=== PATIENT | female | born 1955 | race Caucasian/White ===

== ENCOUNTER 2021-06-22 10:35 | Day surgery (SDC) | payer MEDICARE, OTHER ==
--- NOTE | 2021-06-22 07:47 | HP ---
DATE OF SURGERY: 06/22/2021 HISTORY OF PRESENT ILLNESS: The patient is a 66-year-old last colonoscopy five or six years ago had some polyps. No bloody stools. No change in bowel movements. No pain. Family history negative for colon cancer, negative for ulcerative colitis. She has history of laparoscopic hernia repair by Dr. De La Paz in the past. Question whether she had poor insufflation or recurrence. Offered checking a CT scan of pelvis for evaluation and really wanted to hold off. She is due for follow up screening colonoscopy given her history of polyps. PAST MEDICAL HISTORY: Hypothyroidism. PAST SURGICAL HISTORY: Hernia repair by Dr. De La Paz in the past. Meniscus repair. Appendectomy in the past. MEDICATIONS: Levothyroxine. ALLERGIES: TRAMADOL. FAMILY HISTORY: Negative for colon cancer, negative for ulcerative colitis. SOCIAL HISTORY: Quarter to half pack per day smoker, denies alcohol abuse. REVIEW OF SYSTEMS: Fourteen systems reviewed. No chest pain or palpitations. Other systems negative or noncontributory as above and per preadmission questionnaire. PHYSICAL EXAMINATION: GENERAL: No acute distress. HEENT: Sclerae nonicteric. NECK: No JVD. CHEST: Clear to auscultation. CVS: Regular rate and rhythm. ABDOMEN: Soft. No peritoneal signs. EXTREMITIES: No significant edema. NEURO: Alert, oriented, moving extremities symmetrically. RECTAL: Deferred timed to endoscopy exam. PSYCH: Appropriate mood and affect. IMPRESSION: History of polyps, need follow up screening colonoscopy. I feel the patient is a candidate. Risks and benefits explained in detail including but not limited to bleeding or infection, risk of bowel injury or perforation possibly requiring open procedure, risk of missed or nondiagnosis, risk of bowel prep or sedation, not limited. Consent obtained. Will proceed with outpatient follow up screening colonoscopy.
[2021-06-22] MEDS ORDERED: Lactated Ringers 1,000 ML IV ONE (10:57)
[2021-06-22] MEDS ORDERED: Lactated Ringers 1,000 ML IV SCH (11:00)
[2021-06-22 11:17] VITALS: O2SAT 96
[2021-06-22] MEDS ORDERED: DIPRIVAN 200 MG/20 ML IV ONE ×2 (11:59→12:19)
[2021-06-22] MEDS ORDERED: Versed 2 MG/2 ML Injection ONE (11:59)
[2021-06-22 13:16] VITALS: BP 117/70; PULSE 73
--- NOTE | 2021-06-22 15:33 | OP ---
SURGERY DATE/TIME: 06/22/2021 1201 PREOPERATIVE DIAGNOSIS: History of polyps, need follow up screening colonoscopy. POSTOPERATIVE DIAGNOSES: 1) Small early polyp versus hyperplastic lesion transverse colon, sigmoid colon. 2) Diverticulosis. 3) Very tortuous colon. 4) Fair bowel prep. 5) ASA Class II. 6) Withdrawal time on the colonoscopy approximately 8 minutes. PROCEDURES: 1) Colonoscopy to cecum with hot biopsy polypectomy of small early sigmoid colon polyp versus hyperplastic lesion x4. 2) Hot biopsy polypectomy small early polyp versus hyperplastic lesion transverse colon x1. SURGEON: Dr. Derek Weems. ANESTHESIA: MAC. ESTIMATED BLOOD LOSS: Minimal. INDICATIONS: As noted above. Risks and benefits explained in detail but not limited to and consent obtained. DESCRIPTION OF PROCEDURE AND FINDINGS: The patient is taken to the endoscopy room. MAC anesthesia induced. After official time out and no disagreement with planned procedure, digital rectal exam did not reveal any rectal masses. Video colonoscope inserted and passed up through the slightly tortuous sigmoid, descending, transverse and ascending colon around to the cecum. She had a very tortuous colon. It took quite some time to get to the cecum but the appendiceal orifice and valve were well visualized and photo documented. Required positioning on her back and two different staff members compression on the abdomen palpation right lower quadrant visualization of the valve and appendiceal orifice area confirmed location. Prep overall was fair with a little liquidy semisolid stool most prominent in the right colon this is suctioned and irrigated as clear as possible. The scope is carefully withdrawn over the next 8 minutes. There were no signs of any large polyps, masses or obstructing lesion. There was one small early polyp versus hyperplastic lesion in the transverse colon removed with hot biopsy forceps with brief bursts of cautery. There were four small, early polyps versus hyperplastic lesions in the sigmoid colon removed with hot biopsy polypectomy and brief bursts of cautery. Good hemostasis noted. She did have some moderate diverticulosis in the descending, sigmoid colon area. There were no signs of any large polyps, masses or obstructing lesions. The scope is withdrawn. The patient tolerated the procedure well. Findings discussed with the out in the waiting area. I will see her back in the office next week.
== END 2021-06-22 13:30 | disposition home or self-care (01) ==
LOC: SDC 10:35
PROVIDERS: ATTEND Surgery
DX: Z12.11 Encounter for screening for malignant neoplasm of colon (principal); Z09 Encounter for follow-up examination after completed treatment for conditions other than malignant neoplasm; K57.90 Diverticulosis of intestine, part unspecified, without perforation or abscess without bleeding; K63.5 Polyp of colon; Z86.010 Personal history of colon polyps
CPT/HCPCS: J2250; J2704

== ENCOUNTER 2022-02-01 10:54 | Day surgery (SDC) | payer MEDICARE, OTHER ==
--- NOTE | 2022-02-01 09:26 | HP ---
DATE OF SURGERY: 02/01/2022 HISTORY OF PRESENT ILLNESS: The patient is a 66-year-old has some swelling in her left arm in the past, question of adenopathy versus lipoma or other etiology. PAST MEDICAL HISTORY: Gastroesophageal reflux disease. Hypothyroidism. Hernia. Lymph node problem. PAST SURGICAL HISTORY: Appendectomy. Colonoscopy. Left meniscus repair. Hernia repair in the past in the past. MEDICATIONS: Ibuprofen, Levothyroxine, loratadine, omeprazole, vitamin D3. ALLERGIES: TRAMADOL (LIGHTHEADEDNESS). FAMILY HISTORY: Negative in regards to this problem. SOCIAL HISTORY: History of smoking in the past. REVIEW OF SYSTEMS: Fourteen systems reviewed, negative or noncontributory as above and per preadmission questionnaire. PHYSICAL EXAMINATION: GENERAL: No acute distress. HEENT: Sclerae nonicteric. NECK: No JVD. CHEST: Equal excursion, nonlabored breathing. CVS: Regular rate and rhythm. ABDOMEN: Soft, nontender. EXTREMITIES: She had a little bit of a raised area medial aspect of the antecubital area proximally. Radiologist felt it was adenopathy on recent ultrasound. NEURO: Alert, oriented, moving extremities symmetrically. RECTAL: Deferred timed to endoscopy exam. PSYCH: Appropriate mood and affect. IMPRESSION: Ultrasound was done which showed a 1 cm lymph node medial aspect of the arm. Given the persistence the patient is concerned and desires biopsy. The radiologist did not anything further distal to warrant any other biopsy sites. Discussed options with patient. She prefers to go ahead and have a biopsy to determine path evaluation given the persistent swelling. General risk of bleeding or infection, risk of hematoma, aches, pains, risk of nerve irritation, bruising, scar formation, risk of burning or numbness possibly exterminator or chronic in nature, risk of lymphedema, general risk of anesthesia, deep venous thrombosis, pulmonary embolism, pneumonia but not limited to. Scar formation. Consent obtained. Will proceed with excisional biopsy of left arm nodule or node as an outpatient.
[~2022-02-01 10:54] MED LIST: Sensorcaine 0.25% 10 ML ONE
[2022-02-01] MEDS ORDERED: Lactated Ringers 1,000 ML IV ONE ×2 (11:18→14:51)
[2022-02-01] MEDS ORDERED: Lactated Ringers 1,000 ML IV SCH (11:30)
[2022-02-01] MEDS ORDERED: CEFAZOLIN 2 GM-D5W BAG** 2 GM/50 ML ML IV ONE (13:42)
[2022-02-01] MEDS ORDERED: Versed 2 MG/2 ML Injection ONE (13:45)
[2022-02-01] MEDS ORDERED: Zofran 4 MG/2 ML VIAL ONE ×2 (13:45→13:50)
[2022-02-01] MEDS ORDERED: SUBLIMAZE 100 MCG/2 ML ONE (13:45)
[2022-02-01] MEDS ORDERED: Decadron 4 MG INJ ONE (13:45)
[2022-02-01] MEDS ORDERED: DIPRIVAN 200 MG/20 ML IV ONE (13:45)
[2022-02-01] MEDS ORDERED: Xylocaine-Mpf 2% 5 Ml Vial ONE (13:45)
[2022-02-01] MEDS ORDERED: CEFAZOLIN 2 GM-D5W BAG** 2 GM/50 ML ML IV SCH (14:00)
[2022-02-01] MEDS ORDERED: PHENYLEPHRINE HCL ONE (14:11)
[2022-02-01] MEDS ORDERED: Ephedrine Sulfate 50 MG/ML ONE (15:16)
[2022-02-01 16:14] VITALS: BP 138/75; PULSE 86; O2SAT 97
--- NOTE | 2022-02-02 09:00 | OP ---
SURGERY DATE/TIME: 02/01/2022 1401 PREOPERATIVE DIAGNOSIS: Enlarging nodule or node left upper extremity antecubital area. POSTOPERATIVE DIAGNOSIS: Lipomatous density. No chronic visible significantly enlarged adenopathy in the raised area she had in question this was confirmed in the preoperative area. PROCEDURE: Excisional biopsy approximately 1.2 cm lipomatous density left arm antecubital area. SURGEON: Dr. Derek Weems. ANESTHESIA: General. ESTIMATED BLOOD LOSS: Minimal. INDICATIONS: As noted above. The site was confirmed and marked with the patient in the preoperative holding area. DESCRIPTION OF PROCEDURE AND FINDINGS: Slightly raised area top edge of antecubital area medially this area in question was quite soft. There is question whether some fatty density here. Questionable node or nodule reported on the ultrasound in the past. Dissection carried over this. She had a prior scar from an injury years ago. Dissection carried directly overlying this area dissection carried down to subcutaneous tissue. There was a little bit denser lipomatous density overlying area carefully dissected out and passed off. It measured about 1.2 cm in size, passed off for pathology. Otherwise the main area of the raised area where a vein was lying directly anterior to the artery. Careful dissection around this. There did not appear to be any significant large adenopathy in the area in question. Whether this had been marked by the patient. Remaining was musculature of her artery and large vein, nerves medial were carefully protected and avoided. Whether there is a little bit more of a medial fatty material in the nerve bundle but there was no specific nodule that warranted an excision. Palpation of bony structures and musculature, there did not appear to be any significant adenopathy to warrant removal in this area in question. The wound is irrigated out. Good hemostasis noted. Again, carefully protected the vein which was lying directly anterior to the artery and carefully protected the nerve structures. The wound was then closed with interrupted 3-0 Vicryl. Subcu and skin closed with 4-0 Vicryl in subcuticular fashion. 0.25% Marcaine local injected. Steri-Strips and sterile dressing applied. The patient tolerated the procedure well. There were no immediate complications. Findings discussed with the family out in the waiting area. If she continues to have some arm aches and pains, might need to see neurology to do EMG for further evaluation.
== END 2022-02-01 16:25 | disposition home or self-care (01) ==
LOC: SDC 10:54
PROVIDERS: ATTEND Surgery
DX: D17.22 Benign lipomatous neoplasm of skin and subcutaneous tissue of left arm (principal); R22.32 Localized swelling, mass and lump, left upper limb
CPT/HCPCS: J0690; J1100; J2250; J2370; J2405; J2704; J3010

== ENCOUNTER 2022-11-08 08:40 | Day surgery (SDC) | payer MEDICARE, OTHER ==
--- NOTE | 2022-11-08 08:30 | HP ---
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 She has had a couple attacks of epigastric pain associated with nausea and vomiting. HIDA normal 16%. Ultrasound showed some sludge. PAST MEDICAL HISTORY: Gastroesophageal reflux disease, hernia, anxiety. PAST SURGICAL HISTORY: She had lipoma removed from her left arm in the past. She had hernia repair in the past. She had lymph node repair in the past. MEDICATIONS: Levothyroxine (hypothyroidism). ALLERGIES: TRAMADOL. FAMILY HISTORY: Negative. SOCIAL HISTORY: Smoker. No alcohol abuse. REVIEW OF SYSTEMS: Fourteen systems reviewed. No chest pain or palpitations. Other systems negative or noncontributory as above and per preadmission questionnaire. PHYSICAL EXAMINATION: Height 5'4". BMI 20.6. GENERAL: No acute distress. HEENT: Sclerae nonicteric. EOMI. Oral mucous membranes moist. NECK: No JVD. CHEST: Equal excursion, nonlabored breathing. Breath sounds equal. CVS: Regular rate and rhythm. ABDOMEN: Soft. EXTREMITIES: No significant edema. NEURO: Alert, oriented, moving extremities symmetrically. PSYCH: Appropriate mood and affect. SKIN: Dry. IMPRESSION: Acute exacerbation chronic cholecystitis, symptomatic biliary dyskinesia and sludge. I recommend cholecystectomy. He was shown the risk sheet explained the procedure in detail including but not limited to bleeding or infection, risk of trocar injury or hernia, risk of bile leak, bile duct injury, retained stone or sludge possibly requiring further procedure either open or ERCP, general risk of anesthesia, deep venous thrombosis, pulmonary embolism, pneumonia, perioperative risk of aches, pains, bloating, constipation and/or loose stools possibly even chronic in nature. She understands and agrees to the planned procedure, will proceed with laparoscopic cholecystectomy with possible open as an outpatient.
[2022-11-08] MEDS ORDERED: Lactated Ringers 1,000 ML IV SCH (09:30)
[2022-11-08] MEDS ORDERED: MEFOXIN 2 GM PREMIX** 2 GM/50 ML ML IV SCH (10:00)
[2022-11-08] MEDS ORDERED: Zemuron 100 MG/10 ML ONE (10:46)
[2022-11-08] MEDS ORDERED: Decadron 4 MG INJ ONE (10:46)
[2022-11-08] MEDS ORDERED: Xylocaine-Mpf 2% 5 Ml Vial ONE (10:46)
[2022-11-08] MEDS ORDERED: SUBLIMAZE 100 MCG/2 ML ONE (10:46)
[2022-11-08] MEDS ORDERED: Versed 2 MG/2 ML Injection ONE (10:46)
[2022-11-08] MEDS ORDERED: Zofran 4 MG/2 ML VIAL ONE (10:46)
[2022-11-08] MEDS ORDERED: DIPRIVAN 200 MG/20 ML IV ONE (10:47)
[2022-11-08] MEDS ORDERED: OFIRMEV 100 ML IV ONE (10:52)
[2022-11-08] MEDS ORDERED: DEXMEDETOMIDINE 80 MCG/20ML-NS IV ONE (11:12)
[2022-11-08] MEDS ORDERED: ROBINUL ONE (11:26)
[2022-11-08] MEDS ORDERED: BRIDION 200MG/2ML IV ONE (11:28)
[2022-11-08] MEDS ORDERED: Lactated Ringers 1,000 ML IV ONE (11:38)
[2022-11-08] MEDS ORDERED: Hydromorphone 1 mg/ml Injection ONE (12:06)
[2022-11-08 12:55] VITALS: RESP 18
[2022-11-08 12:59] VITALS: TEMP 96.3
[2022-11-08] MEDS ORDERED: NORCO 5/325 MG PO PRN (12:59)
[2022-11-08 13:12] VITALS: BP 140/60; PULSE 66; O2SAT 98
--- NOTE | 2022-11-09 08:10 | OP ---
SURGERY DATE/TIME: 11/08/2022 1057 PREOPERATIVE DIAGNOSIS: Acute exacerbation of chronic cholecystitis, symptomatic biliary dyskinesia. POSTOPERATIVE DIAGNOSIS: Acute exacerbation of chronic cholecystitis, symptomatic biliary dyskinesia. PROCEDURE: Laparoscopic cholecystectomy. SURGEON: Dr. Matthew Weems. SCRUB WHEEL OPERATOR: Ramiro Piper, Medical Student III. ANESTHESIA: General. ESTIMATED BLOOD LOSS: Minimal. INDICATIONS: As noted above. Risks and benefits explained in detail but not limited to and consent obtained. DESCRIPTION OF PROCEDURE AND FINDINGS: The patient was taken to the operating room. General anesthesia induced. Abdomen prepped and draped in usual sterile fashion. After official time out and no disagreement with planned procedure, a transverse incision made in the supraumbilical area. Fascia grasped, pulled upward. Veress needle inserted and tested with saline. Pneumoperitoneum accomplished insufflating opening pressure of 0-15. An 11 mm bladeless port and camera were inserted without difficulty supraumbilical area and two - 5 mm right upper quadrant ports and 5 mm epigastric port. The gallbladder had some chronic inflammatory reaction. Dissected posterior, lateral to anterior fashion slowly and carefully the cystic duct and infundibular junction slowly and carefully well skeletonized until the critical view was obtained both anteriorly and posteriorly. Once this is accomplished, the cystic duct and cystic artery were clipped x3 and divided in the usual fashion. The gallbladder is slowly and carefully dissected free from its dense attachments to the liver bed clipping additional oozing side branches off the cystic artery and cystic vein as necessary. Just prior to releasing from final attachments to the anterior edge of the liver, the liver bed re-inspected. Clips noted to be in place in the cystic duct and cystic artery stumps. No signs of any active bleeding or bile leakage. It was felt there is no benefit of drain placement. The gallbladder was released from its final attachments to anterior edge of the liver pulled up and out the 10/11 port site and passed off. Copious amount of irrigation accomplished lateral to the liver irrigating subhepatic space until clear. Clips noted to be in place cystic duct and cystic artery stumps. No signs of any active bleeding or bile leakage. It was felt there was no benefit in drain placement. Pneumoperitoneum decompressed. The wound irrigated out. Skin incision closed with 4-0 Vicryl. The 10/11 site had been closed with puncture closure device with #1 Vicryl. Steri-Strips and sterile dressing applied. The patient tolerated the procedure well. There were no immediate complications. 0.25% Marcaine local injected along the skin incision fascial defect. Findings discussed with the family out in the waiting area.
== END 2022-11-08 13:30 | disposition home or self-care (01) ==
LOC: SDC 08:40
PROVIDERS: ATTEND Surgery
DX: K81.2 Acute cholecystitis with chronic cholecystitis (principal); K82.8 Other specified diseases of gallbladder
CPT/HCPCS: J0694; J1100; J1170; J2250; J2405; J2704; J3010; A9270-GY